=== PATIENT | male | born 1985 | race Caucasian/White ===

== ENCOUNTER 2017-05-18 19:20 | Emergency (ER) | payer MEDICAID ==
[2016-04-11 12:45] VITALS: BMI 19.7
[~2017-05-18 19:20] MED LIST: PHENERGAN25 M1 PO
[2017-05-18 20:42] LABS: BASOPHILS 0.1 % (0-2); EOSINOPHILS 0.1 % (0-7); HEMATOCRIT 43.1 % (42.0-54.0); HEMOGLOBIN 14.5 g/dL (13.5-17.5); IMMATURE GRANULOCYTES 0.2 % (0-5); LYMPHOCYTES 9.5 % (15-50); MCH 32.2 pg (26.0-34.0); MCHC 33.6 g/dL (31.0-37.0); MCV 95.6 fL (80.0-100.0); MEAN PLATELET VOLUME 9.3 fL (7.4-10.4); MONOCYTES 3.4 % (2-11); NEUTROPHILS 86.7 % (40-80); RBC 4.51 10x6/uL (4.20-6.10); WBC 11.1 10x3/uL (4.8-10.8)
[2017-05-18 20:44] LABS: PLATELET COUNT 280 10x3/uL (130-400)
[2017-05-18 20:59] LABS: ALBUMIN 3.7 g/dL (3.4-5.0); ALKALINE PHOSPHATASE 70 U/L (46-116); ALT (SGPT) 24 U/L (10-68); BILIRUBIN - TOTAL 0.37 mg/dL (0.2-1.3); CALC OSMOLALITY 285 mosm/kg (275-300); CALCIUM 8.4 mg/dL (8.5-10.1); CARBON DIOXIDE 22.9 mmol/L (21.0-32.0); CHLORIDE - SERUM 108 mmol/L (98-107); CREATININE - SERUM 0.7 mg/dL (0.6-1.3); GLUCOSE 125 mg/dL (74-106); LIPASE 107 U/L (73-393); POTASSIUM - SERUM 3.8 mmol/L (3.5-5.1); PROTEIN - SERUM 6.8 g/dL (6.4-8.2); SODIUM 144 mmol/L (136-145); UREA NITROGEN 8 mg/dL (7-18); eGFR NON AFRICAN AMERICAN > 90 mL/min (90-120)
[2017-05-18 22:31] LABS: APPEARANCE CLEAR (CLEAR); COLOR YELLOW (YELLOW); GLUCOSE NEGATIVE (NEGATIVE); KETONE MODERATE mg/dL (NEGATIVE); NITRITE NEGATIVE (NEGATIVE); PROTEIN NEGATIVE (NEGATIVE); SPECIFIC GRAVITY 1.015 (1.005-1.020)
[2017-05-18 22:32] LABS: BILIRUBIN NEGATIVE (NEGATIVE); UROBILINOGEN NORMAL (NORMAL)
[2017-05-18 22:33] LABS: RED CELLS - URINE 0-5 /hpf (0-5); WHITE CELLS - URINE OCC /hpf (0-5)
== END 2017-05-19 00:22 | disposition home or self-care (01) ==
LOC: D.ER 19:20
PROVIDERS: Emergency Medicine
DX: R10.9 Unspecified abdominal pain (principal); R11.10 Vomiting, unspecified

== ENCOUNTER 2017-05-21 12:45 | Emergency (ER) | payer SELFPAY ==
[2016-04-11 12:45] VITALS: BMI 19.7
[2017-05-21 13:17] LABS: BASOPHILS 0.1 % (0-2); EOSINOPHILS 0 % (0-7); HEMATOCRIT 46.9 % (42.0-54.0); HEMOGLOBIN 16.1 g/dL (13.5-17.5); IMMATURE GRANULOCYTES 0.2 % (0-5); LYMPHOCYTES 8.5 % (15-50); MCH 32.4 pg (26.0-34.0); MCHC 34.3 g/dL (31.0-37.0); MCV 94.4 fL (80.0-100.0); MEAN PLATELET VOLUME 9.2 fL (7.4-10.4); MONOCYTES 3.4 % (2-11); NEUTROPHILS 87.8 % (40-80); PLATELET COUNT 273 10x3/uL (130-400); RBC 4.97 10x6/uL (4.20-6.10); RDW 12.5 % (11.5-14.5); WBC 9.8 10x3/uL (4.8-10.8)
[2017-05-21 13:46] LABS: ALBUMIN 3.9 g/dL (3.4-5.0); ALKALINE PHOSPHATASE 77 U/L (46-116); ALT (SGPT) 25 U/L (10-68); AMYLASE - SERUM 51 U/L (25-115); BILIRUBIN - TOTAL 0.54 mg/dL (0.2-1.3); CALC OSMOLALITY 280 mosm/kg (275-300); CALCIUM 9.2 mg/dL (8.5-10.1); CARBON DIOXIDE 28.3 mmol/L (21.0-32.0); CHLORIDE - SERUM 100 mmol/L (98-107); CREATININE - SERUM 0.8 mg/dL (0.6-1.3); GLUCOSE 126 mg/dL (74-106); LIPASE 112 U/L (73-393); POTASSIUM - SERUM 3.7 mmol/L (3.5-5.1); PROTEIN - SERUM 7.4 g/dL (6.4-8.2); SODIUM 139 mmol/L (136-145); UREA NITROGEN 16 mg/dL (7-18); eGFR NON AFRICAN AMERICAN > 90 mL/min (90-120)
== END 2017-05-21 15:41 | disposition home or self-care (01) ==
LOC: D.ER 12:45
PROVIDERS: Emergency Medicine
DX: G43.A0 Cyclical vomiting, in migraine, not intractable (principal); E86.0 Dehydration; R10.13 Epigastric pain

== ENCOUNTER 2017-09-29 07:09 | Emergency (ER) | payer SELFPAY ==
[2016-04-11 12:45] VITALS: BMI 19.7
[2017-09-29 08:07] LABS: AMYLASE - SERUM 61 U/L (25-115); LIPASE 118 U/L (73-393)
[2017-09-29 08:14] LABS: ALBUMIN 3.9 g/dL (3.4-5.0); ALKALINE PHOSPHATASE 75 U/L (46-116); ALT (SGPT) 19 U/L (10-68); BILIRUBIN - TOTAL 0.86 mg/dL (0.2-1.3); CALC OSMOLALITY 272 mosm/kg (275-300); CALCIUM 8.9 mg/dL (8.5-10.1); CARBON DIOXIDE 29.3 mmol/L (21.0-32.0); CHLORIDE - SERUM 98 mmol/L (98-107); CREATININE - SERUM 0.8 mg/dL (0.6-1.3); GLUCOSE 118 mg/dL (74-106); POTASSIUM - SERUM 3.8 mmol/L (3.5-5.1); PROTEIN - SERUM 7.2 g/dL (6.4-8.2); SODIUM 136 mmol/L (136-145); UREA NITROGEN 13 mg/dL (7-18); eGFR NON AFRICAN AMERICAN > 90 mL/min (90-120)
[2017-09-29 08:40] LABS: BASOPHILS 0 % (0-2); EOSINOPHILS 0.1 % (0-7); HEMATOCRIT 41.4 % (42.0-54.0); HEMOGLOBIN 14.5 g/dL (13.5-17.5); IMMATURE GRANULOCYTES 0.2 % (0-5); LYMPHOCYTES 17.7 % (15-50); MCH 31.9 pg (26.0-34.0); MCV 91.2 fL (80.0-100.0); MEAN PLATELET VOLUME 9.3 fL (7.4-10.4); MONOCYTES 9.1 % (2-11); NEUTROPHILS 72.9 % (40-80); PLATELET COUNT 293 10x3/uL (130-400); RBC 4.54 10x6/uL (4.20-6.10); RDW 12.7 % (11.5-14.5); WBC 10.1 10x3/uL (4.8-10.8)
== END 2017-09-29 10:09 | disposition home or self-care (01) ==
LOC: D.ER 07:09
PROVIDERS: Emergency Medicine
DX: G43.A0 Cyclical vomiting, in migraine, not intractable (principal); R10.9 Unspecified abdominal pain

== ENCOUNTER 2018-01-22 17:00 | Emergency (ER) | payer SELFPAY ==
[~2018-01-22] VITALS: Ht 182.9 cm; Wt 68.2 kg
[2018-01-22 17:01] VITALS: Ht 182.9 cm; Wt 68.2 kg
[2018-01-22] MEDS ORDERED: ATIVAN1 MG PO (17:05)
[2018-01-22 17:55] VITALS: BP 137/83
[2018-01-22 18:19] LABS: BASOPHILS 0.1 % (0-2); EOSINOPHILS 0.2 % (0-7); HEMATOCRIT 43.8 % (42.0-54.0); HEMOGLOBIN 15.8 g/dL (13.5-17.5); IMMATURE GRANULOCYTES 0.4 % (0-5); LYMPHOCYTES 23.9 % (15-50); MCHC 36.1 g/dL (31.0-37.0); MCV 86.1 fL (80.0-100.0); MONOCYTES 7.5 % (2-11); NEUTROPHILS 67.9 % (40-80); PLATELET COUNT 317 10x3/uL (130-400); RBC 5.09 10x6/uL (4.20-6.10); RDW 12.3 % (11.5-14.5); WBC 8.9 10x3/uL (4.8-10.8)
[2018-01-22 18:20] LABS: ALKALINE PHOSPHATASE 84 U/L (46-116); ALT (SGPT) 29 U/L (10-68); AMYLASE - SERUM 51 U/L (25-115); BILIRUBIN - TOTAL 0.98 mg/dL (0.2-1.3); CALC OSMOLALITY 270 mosm/kg (275-300); CALCIUM 9.4 mg/dL (8.5-10.1); CARBON DIOXIDE 27.7 mmol/L (21.0-32.0); CHLORIDE - SERUM 96 mmol/L (98-107); CREATINE KINASE 49 UL (21-232); GLUCOSE 111 mg/dL (74-106); LIPASE 169 U/L (73-393); MAGNESIUM - SERUM 2.3 mg/dL (1.8-2.4); POTASSIUM - SERUM 3.6 mmol/L (3.5-5.1); PROTEIN - SERUM 7.6 g/dL (6.4-8.2); SODIUM 133 mmol/L (136-145); UREA NITROGEN 25 mg/dL (7-18); eGFR NON AFRICAN AMERICAN > 90 mL/min (90-120)
== END 2018-01-22 19:40 | disposition home or self-care (01) ==
LOC: D.ER 17:00
PROVIDERS: Family Medicine
DX: G40.909 Epilepsy, unspecified, not intractable, without status epilepticus (principal); F17.200 Nicotine dependence, unspecified, uncomplicated

== ENCOUNTER 2018-01-31 15:06 | Emergency (ER) | payer SELFPAY ==
[~2018-01-31] VITALS: Ht 182.9 cm; Wt 65.9 kg
[~2018-01-31 15:06] MED LIST changes: +ATIVAN1 MG PO
[2018-01-31 15:10] VITALS: Ht 182.9 cm; Wt 65.9 kg
[2018-01-31 15:44] LABS: BASOPHILS 0.1 % (0-2); EOSINOPHILS 0 % (0-7); HEMATOCRIT 42.6 % (42.0-54.0); HEMOGLOBIN 14.8 g/dL (13.5-17.5); IMMATURE GRANULOCYTES 0.3 % (0-5); LYMPHOCYTES 9.1 % (15-50); MCH 31.6 pg (26.0-34.0); MCHC 34.7 g/dL (31.0-37.0); MCV 90.8 fL (80.0-100.0); MEAN PLATELET VOLUME 8.9 fL (7.4-10.4); MONOCYTES 2.8 % (2-11); NEUTROPHILS 87.7 % (40-80); PLATELET COUNT 372 10x3/uL (130-400); RBC 4.69 10x6/uL (4.20-6.10); RDW 13.2 % (11.5-14.5); WBC 15.6 10x3/uL (4.8-10.8)
[2018-01-31 15:51] LABS: INR 1.08 (0.85-1.17); PROTIME 13.6 SECONDS (11.6-15.0)
[2018-01-31 15:58] LABS: ALBUMIN 3.9 g/dL (3.4-5.0); ALKALINE PHOSPHATASE 77 U/L (46-116); ALT (SGPT) 18 U/L (10-68); BILIRUBIN - TOTAL 0.75 mg/dL (0.2-1.3); CALC OSMOLALITY 269 mosm/kg (275-300); CALCIUM 9.4 mg/dL (8.5-10.1); CARBON DIOXIDE 23.9 mmol/L (21.0-32.0); CHLORIDE - SERUM 102 mmol/L (98-107); CREATININE - SERUM 0.9 mg/dL (0.6-1.3); GLUCOSE 128 mg/dL (74-106); POTASSIUM - SERUM 4.4 mmol/L (3.5-5.1); PROTEIN - SERUM 7.4 g/dL (6.4-8.2); SODIUM 135 mmol/L (136-145); UREA NITROGEN 7 mg/dL (7-18); eGFR NON AFRICAN AMERICAN > 90 mL/min (90-120)
[2018-01-31 16:26] LABS: AMYLASE - SERUM 57 U/L (25-115); CKMB 1.1 U/L (0.0-3.6); CREATINE KINASE 74 UL (21-232); LIPASE 186 U/L (73-393); THYROID STIMULATING HORMONE 0.88 uIU/mL (0.36-3.74)
[2018-01-31 16:28] LABS: TROPONIN-I < 0.017 ng/mL (0.000-0.060)
[2018-01-31 16:35] LABS: APPEARANCE CLEAR (CLEAR); COLOR DK YELLOW (YELLOW); GLUCOSE NEGATIVE (NEGATIVE); KETONE SMALL mg/dL (NEGATIVE); NITRITE NEGATIVE (NEGATIVE); PROTEIN NEGATIVE (NEGATIVE); SPECIFIC GRAVITY 1.005 (1.005-1.020)
[2018-01-31 16:36] LABS: BILIRUBIN NEGATIVE (NEGATIVE); UROBILINOGEN NORMAL (NORMAL)
[2018-01-31 16:37] LABS: BACTERIA FEW /hpf (NONE SEEN); MUCUS <1+ /lpf (NONE SEEN); WHITE CELLS - URINE 0-5 /hpf (0-5)
[2018-01-31 16:43] LABS: UDS - AMPHET POSITIVE QUAL (NEGATIVE); UDS - BARB NEGATIVE QUAL (NEGATIVE); UDS - BENZO NEGATIVE QUAL (NEGATIVE); UDS - COCAINE NEGATIVE QUAL (NEGATIVE); UDS - OPIATE NEGATIVE QUAL (NEGATIVE); UDS - PCP NEGATIVE QUAL (NEGATIVE); UDS - THC POSITIVE QUAL (NEGATIVE)
[2018-01-31] MEDS ORDERED: VALIUM 2 MG TAB2 MG PO (19:20)
[2018-01-31 20:01] VITALS: BP 144/81
== END 2018-01-31 20:01 | disposition home or self-care (01) ==
LOC: D.ER 15:06
PROVIDERS: Family Medicine
DX: G40.909 Epilepsy, unspecified, not intractable, without status epilepticus (principal); E86.0 Dehydration; Z91.14 Patient's other noncompliance with medication regimen; R10.9 Unspecified abdominal pain; R11.2 Nausea with vomiting, unspecified; F17.200 Nicotine dependence, unspecified, uncomplicated

== ENCOUNTER 2018-02-02 07:28 | Emergency (ER) | payer SELFPAY ==
[~2018-02-02] VITALS: Ht 182.9 cm; Wt 54.5 kg
[~2018-02-02 07:28] MED LIST changes: +VALIUM 2 MG TAB2 MG PO
[2018-02-02 07:30] VITALS: BP 112/79; Ht 182.9 cm; Wt 54.5 kg
== END 2018-02-02 07:50 | disposition left against medical advice (07) ==
LOC: D.ER 07:28
DX: F13.10 Sedative, hypnotic or anxiolytic abuse, uncomplicated (principal); G40.909 Epilepsy, unspecified, not intractable, without status epilepticus; F17.200 Nicotine dependence, unspecified, uncomplicated

== ENCOUNTER 2018-12-21 19:53 | Emergency (ER) | payer SELFPAY ==
[2018-12-21 20:10] VITALS: BMI 20.4
[2018-12-21 20:51] LABS: APPEARANCE CLEAR (CLEAR); COLOR YELLOW (YELLOW)
[2018-12-21 20:52] LABS: BILIRUBIN NEGATIVE (NEGATIVE); GLUCOSE NEGATIVE (NEGATIVE); KETONE NEGATIVE (NEGATIVE); NITRITE NEGATIVE (NEGATIVE); PROTEIN NEGATIVE (NEGATIVE); SPECIFIC GRAVITY 1.015 (1.005-1.020); UROBILINOGEN NORMAL (NORMAL)
[2018-12-21 20:53] LABS: BACTERIA FEW /hpf (NONE SEEN); EPITHELIAL CELLS NSEEN /hpf (0-5); RED CELLS - URINE 0-5 /hpf (0-5); WHITE CELLS - URINE 0-5 /hpf (0-5)
[2018-12-21 20:55] LABS: UDS - AMPHET NEGATIVE QUAL (NEGATIVE); UDS - BARB NEGATIVE QUAL (NEGATIVE); UDS - BENZO POSITIVE QUAL (NEGATIVE); UDS - COCAINE NEGATIVE QUAL (NEGATIVE); UDS - OPIATE NEGATIVE QUAL (NEGATIVE); UDS - PCP NEGATIVE QUAL (NEGATIVE); UDS - THC POSITIVE QUAL (NEGATIVE)
[2018-12-21 21:02] LABS: BASOPHILS 0.4 % (0-2); EOSINOPHILS 2.9 % (0-7); HEMATOCRIT 43.6 % (42.0-54.0); IMMATURE GRANULOCYTES 0.4 % (0-5); LYMPHOCYTES 29.7 % (15-50); MCH 31.8 pg (26.0-34.0); MCHC 34.4 g/dL (31.0-37.0); MCV 92.6 fL (80.0-100.0); MEAN PLATELET VOLUME 8.9 fL (7.4-10.4); NEUTROPHILS 59.6 % (40-80); RBC 4.71 10x6/uL (4.20-6.10); RDW 12.7 % (11.5-14.5); WBC 8.2 10x3/uL (4.8-10.8)
[2018-12-21 21:03] LABS: PLATELET COUNT 279 10x3/uL (130-400)
--- NOTE | 2018-12-21 21:20 | NUR ---
The patient cut his wrists on his bilateral wrists, he is depressed and has a lot of anxiety. Due to the suicide assessment he rates high and requiers a 1:1 observation.
[2018-12-21 21:30] LABS: ALBUMIN 3.8 g/dL (3.4-5.0); ALKALINE PHOSPHATASE 70 U/L (46-116); ALT (SGPT) 23 U/L (10-68); BILIRUBIN - TOTAL 0.59 mg/dL (0.2-1.3); CALC OSMOLALITY 282 mosm/kg (275-300); CALCIUM 8.9 mg/dL (8.5-10.1); CARBON DIOXIDE 27.1 mmol/L (21.0-32.0); CHLORIDE - SERUM 105 mmol/L (98-107); CREATININE - SERUM 1.1 mg/dL (0.6-1.3); MAGNESIUM - SERUM 2.3 mg/dL (1.8-2.4); POTASSIUM - SERUM 4.2 mmol/L (3.5-5.1); SODIUM 141 mmol/L (136-145); UREA NITROGEN 20 mg/dL (7-18); eGFR NON AFRICAN AMERICAN 82 mL/min (90-120)
[2018-12-21 21:39] LABS: GLUCOSE 76 mg/dL (74-106)
[2018-12-22 01:00] VITALS: BP 125/84
== END 2018-12-22 10:29 ==
LOC: D.ER 19:53
PROVIDERS: Emergency Medicine
DX: S61.512A Laceration without foreign body of left wrist, initial encounter (principal); X78.1XXA Intentional self-harm by knife, initial encounter; Y93.89 Activity, other specified; Y92.89 Other specified places as the place of occurrence of the external cause

== ENCOUNTER 2019-02-07 13:12 | Emergency (ER) | payer MEDICAID ==
[~2019-02-07] VITALS: Ht 182.9 cm; Wt 79.5 kg
[2019-02-07 13:28] VITALS: Ht 182.9 cm; Wt 79.5 kg
[2019-02-07] MEDS ORDERED: REMERON30 MG PO (13:32)
[2019-02-07] MEDS ORDERED: PAXIL40 MG PO (13:32)
[2019-02-07 14:17] LABS: BASOPHILS 0.1 % (0-2); EOSINOPHILS 0.3 % (0-7); HEMATOCRIT 50.9 % (42.0-54.0); HEMOGLOBIN 18.7 g/dL (13.5-17.5); IMMATURE GRANULOCYTES 0.4 % (0-5); LYMPHOCYTES 24.1 % (15-50); MCH 33.1 pg (26.0-34.0); MCHC 36.7 g/dL (31.0-37.0); MCV 90.1 fL (80.0-100.0); MEAN PLATELET VOLUME 9.4 fL (7.4-10.4); MONOCYTES 13.9 % (2-11); NEUTROPHILS 61.2 % (40-80); PLATELET COUNT 303 10x3/uL (130-400); RBC 5.65 10x6/uL (4.20-6.10); RDW 13.4 % (11.5-14.5); WBC 12.8 10x3/uL (4.8-10.8)
[2019-02-07 14:38] LABS: ALBUMIN 4.2 g/dL (3.4-5.0); ANION GAP 13.4 mmol/L (8-16); BILIRUBIN - TOTAL 1.23 mg/dL (0.2-1.3); CALCIUM 9.2 mg/dL (8.5-10.1); CARBON DIOXIDE 30.3 mmol/L (21.0-32.0); CREATININE - SERUM 1.2 mg/dL (0.6-1.3); PROTEIN - SERUM 8.4 g/dL (6.4-8.2)
[2019-02-07 14:41] LABS: POTASSIUM - SERUM 2.7 mmol/L (3.5-5.1)
[2019-02-07] MEDS ORDERED: FLAGYL500 MG PO (20:14)
[2019-02-07] MEDS ORDERED: ZOFRAN4 MG PO (20:14)
[2019-02-07] MEDS ORDERED: K-TAB10 MEQ PO (20:15)
[2019-02-07 21:20] VITALS: BP 118/80
== END 2019-02-07 21:20 | disposition home or self-care (01) ==
LOC: D.ER 13:12
PROVIDERS: Emergency Medicine
DX: K52.9 Noninfective gastroenteritis and colitis, unspecified (principal); R10.9 Unspecified abdominal pain; E87.6 Hypokalemia

== ENCOUNTER 2019-02-15 11:10 | Emergency (ER) | payer SELFPAY ==
[~2019-02-15] VITALS: Ht 182.9 cm; Wt 79.5 kg
[~2019-02-15 11:10] MED LIST changes: +FLAGYL500 MG PO; +K-TAB10 MEQ PO; +PAXIL40 MG PO; +REMERON30 MG PO; +ZOFRAN4 MG PO
[2019-02-15 11:16] VITALS: Ht 182.9 cm; Wt 79.5 kg
[2019-02-15 12:02] LABS: ALBUMIN 3.2 g/dL (3.4-5.0); ALKALINE PHOSPHATASE 65 U/L (46-116); ALT (SGPT) 24 U/L (10-68); BILIRUBIN - TOTAL 0.27 mg/dL (0.2-1.3); CALC OSMOLALITY 278 mosm/kg (275-300); CALCIUM 8.8 mg/dL (8.5-10.1); CARBON DIOXIDE 29.5 mmol/L (21.0-32.0); CHLORIDE - SERUM 107 mmol/L (98-107); CREATININE - SERUM 0.9 mg/dL (0.6-1.3); GLUCOSE 84 mg/dL (74-106); POTASSIUM - SERUM 3.9 mmol/L (3.5-5.1); PROTEIN - SERUM 6.2 g/dL (6.4-8.2); SODIUM 141 mmol/L (136-145); UREA NITROGEN 9 mg/dL (7-18); eGFR NON AFRICAN AMERICAN > 90 mL/min (90-120)
[2019-02-15] MEDS ORDERED: PHENERGAN25 MG RC (12:02)
[2019-02-15 12:04] LABS: AMYLASE - SERUM 60 U/L (25-115); LIPASE 207 U/L (73-393); TROPONIN-I < 0.017 ng/mL (0.000-0.060)
[2019-02-15 12:17] LABS: BASOPHILS 0.4 % (0-2); EOSINOPHILS 2.3 % (0-7); HEMATOCRIT 40.6 % (42.0-54.0); HEMOGLOBIN 14.1 g/dL (13.5-17.5); IMMATURE GRANULOCYTES 0.4 % (0-5); LYMPHOCYTES 41.6 % (15-50); MCH 32.4 pg (26.0-34.0); MCHC 34.7 g/dL (31.0-37.0); MCV 93.3 fL (80.0-100.0); MEAN PLATELET VOLUME 9.2 fL (7.4-10.4); NEUTROPHILS 46.3 % (40-80); PLATELET COUNT 376 10x3/uL (130-400); RBC 4.35 10x6/uL (4.20-6.10); RDW 13.5 % (11.5-14.5)
--- NOTE | 2019-02-15 14:46 | NUR ---
DR. ROBLES NOTIFIED AND SITTER IN LINE OF SIGHT ORDERED. SITTER AT BEDSIDE. NOTIFIED CHARGE NURSE AND ATTENDING IN REGARDS TO ASSESSMENT FINDINGS. RESOURCES GIVEN TO PT AND SAFETY PLAN INTIATED.
[2019-02-15 17:13] LABS: APPEARANCE CLEAR (CLEAR); COLOR STRAW (YELLOW); SPECIFIC GRAVITY 1.005 (1.005-1.020)
[2019-02-15 17:14] LABS: BILIRUBIN NEGATIVE (NEGATIVE); GLUCOSE NEGATIVE (NEGATIVE); KETONE NEGATIVE (NEGATIVE); NITRITE NEGATIVE (NEGATIVE); PROTEIN NEGATIVE (NEGATIVE); UROBILINOGEN NORMAL (NORMAL)
[2019-02-15 17:15] LABS: BACTERIA FEW /hpf (NONE SEEN); RED CELLS - URINE 0-5 /hpf (0-5); WHITE CELLS - URINE OCC /hpf (0-5)
[2019-02-15 17:21] LABS: UDS - AMPHET NEGATIVE QUAL (NEGATIVE); UDS - BARB NEGATIVE QUAL (NEGATIVE); UDS - BENZO NEGATIVE QUAL (NEGATIVE); UDS - COCAINE NEGATIVE QUAL (NEGATIVE); UDS - OPIATE NEGATIVE QUAL (NEGATIVE); UDS - PCP NEGATIVE QUAL (NEGATIVE); UDS - THC POSITIVE QUAL (NEGATIVE)
[2019-02-15 20:04] VITALS: BP 116/76
== END 2019-02-15 20:04 | disposition home or self-care (01) ==
LOC: D.ER 11:10
PROVIDERS: Emergency Medicine
DX: R11.10 Vomiting, unspecified (principal); F17.210 Nicotine dependence, cigarettes, uncomplicated

== ENCOUNTER 2019-06-03 09:11 | Emergency (ER) | payer MEDICAID ==
[~2019-06-03] VITALS: Ht 182.9 cm; Wt 72.7 kg
[~2019-06-03 09:11] MED LIST changes: +PHENERGAN25 MG RC
[2019-06-03 09:13] VITALS: Ht 182.9 cm; Wt 72.7 kg
[2019-06-03 09:37] LABS: BASOPHILS 0.1 % (0-2); EOSINOPHILS 0 % (0-7); HEMATOCRIT 49.2 % (42.0-54.0); IMMATURE GRANULOCYTES 0.3 % (0-5); LYMPHOCYTES 7.8 % (15-50); MCH 32.1 pg (26.0-34.0); MCHC 34.6 g/dL (31.0-37.0); MEAN PLATELET VOLUME 9.7 fL (7.4-10.4); MONOCYTES 5.5 % (2-11); NEUTROPHILS 86.3 % (40-80); PLATELET COUNT 347 10x3/uL (130-400); RBC 5.29 10x6/uL (4.20-6.10); RDW 13.1 % (11.5-14.5); WBC 15.5 10x3/uL (4.8-10.8)
[2019-06-03 09:53] LABS: APPEARANCE CLEAR (CLEAR); BILIRUBIN NEGATIVE (NEGATIVE); COLOR YELLOW (YELLOW); GLUCOSE NEGATIVE (NEGATIVE); KETONE NEGATIVE (NEGATIVE); NITRITE NEGATIVE (NEGATIVE); PROTEIN TRACE mg/dL (NEGATIVE); SPECIFIC GRAVITY 1.005 (1.005-1.020); UROBILINOGEN NORMAL (NORMAL)
[2019-06-03 09:55] LABS: BACTERIA FEW /hpf (NEGATIVE); EPITHELIAL CELLS 0-5 /hpf (0-5); WHITE CELLS - URINE 0-5 /hpf (NEGATIVE)
[2019-06-03 10:30] LABS: CALC OSMOLALITY 271 mosm/kg (275-300); CALCIUM 9.9 mg/dL (8.5-10.1); CHLORIDE - SERUM 98 mmol/L (98-107); CREATININE - SERUM 0.9 mg/dL (0.6-1.3); POTASSIUM - SERUM 4.1 mmol/L (3.5-5.1); SODIUM 134 mmol/L (136-145); UREA NITROGEN 19 mg/dL (7-18); eGFR NON AFRICAN AMERICAN > 90 mL/min (90-120)
[2019-06-03 10:32] LABS: GLUCOSE 127 mg/dL (74-106)
[2019-06-03 10:33] LABS: ALBUMIN 4.2 g/dL (3.4-5.0); ALKALINE PHOSPHATASE 85 U/L (46-116); ALT (SGPT) 22 U/L (10-68); BILIRUBIN - TOTAL 0.83 mg/dL (0.2-1.3); LIPASE 106 U/L (73-393); PROTEIN - SERUM 8.2 g/dL (6.4-8.2)
[2019-06-03] MEDS ORDERED: ZOFRAN ODT4 MG/UDTAB PO (12:12)
[2019-06-03 12:47] VITALS: BP 128/72
== END 2019-06-03 12:48 | disposition home or self-care (01) ==
LOC: D.ER 09:11
PROVIDERS: Family Medicine
DX: A08.4 Viral intestinal infection, unspecified (principal); K50.90 Crohn's disease, unspecified, without complications

== ENCOUNTER 2019-12-17 16:35 | Emergency (ER) | payer OTHER ==
[~2019-12-17] VITALS: Ht 182.9 cm; Wt 68.2 kg
[~2019-12-17 16:35] MED LIST changes: +ZOFRAN ODT4 MG/UDTAB PO
[2019-12-17 16:41] VITALS: BP 130/68; Ht 182.9 cm; Wt 68.2 kg
[2019-12-18] MEDS ORDERED: ZOFRAN ODT4 MG/UDTAB PO (19:44)
[2019-12-18] MEDS ORDERED: BENTYL 20 MG TA20 MG PO (19:44)
== END 2019-12-17 17:40 | disposition left against medical advice (07) ==
LOC: D.ER 16:35
DX: E86.0 Dehydration (principal); R11.10 Vomiting, unspecified

== ENCOUNTER 2019-12-18 17:53 | Inpatient (IN) | payer OTHER ==
[~2019-12-18] VITALS: Ht 182.9 cm; Wt 70.3 kg
[2019-12-18 18:28] LABS: BASOPHILS 0.1 % (0-2); EOSINOPHILS 0.1 % (0-7); HEMATOCRIT 45.1 % (42.0-54.0); HEMOGLOBIN 15.5 g/dL (13.5-17.5); IMMATURE GRANULOCYTES 0.5 % (0-5); LYMPHOCYTES 16.7 % (15-50); MCH 31.3 pg (26.0-34.0); MCHC 34.4 g/dL (31.0-37.0); MCV 90.9 fL (80.0-100.0); MEAN PLATELET VOLUME 9.2 fL (7.4-10.4); MONOCYTES 8.7 % (2-11); NEUTROPHILS 73.9 % (40-80); PLATELET COUNT 357 10x3/uL (130-400); RBC 4.96 10x6/uL (4.20-6.10); RDW 12.4 % (11.5-14.5)
[2019-12-18 18:40] LABS: CALC OSMOLALITY 269 mosm/kg (275-300); CALCIUM 8.7 mg/dL (8.5-10.1); CHLORIDE - SERUM 97 mmol/L (98-107); CREATININE - SERUM 1.1 mg/dL (0.6-1.3); GLUCOSE 93 mg/dL (74-106); POTASSIUM - SERUM 3.8 mmol/L (3.5-5.1); SODIUM 134 mmol/L (136-145); UREA NITROGEN 18 mg/dL (7-18); eGFR NON AFRICAN AMERICAN 82 mL/min (90-120)
[2019-12-18 18:49] LABS: BILIRUBIN NEGATIVE (NEGATIVE); GLUCOSE NEGATIVE (NEGATIVE); KETONE NEGATIVE (NEGATIVE); NITRITE NEGATIVE (NEGATIVE); UROBILINOGEN NORMAL (NORMAL)
[2019-12-18 18:49] LABS: ALBUMIN 3.8 g/dL (3.4-5.0); ALKALINE PHOSPHATASE 81 U/L (30-120); ALT (SGPT) 35 U/L (10-68); AMYLASE - SERUM 238 U/L (25-115); BILIRUBIN - TOTAL 0.68 mg/dL (0.2-1.3); LIPASE 1479 U/L (73-393); PROTEIN - SERUM 7.1 g/dL (6.4-8.2)
[2019-12-18 18:50] LABS: WHITE CELLS - URINE OCC /hpf (NEGATIVE)
[2019-12-18 18:51] VITALS: BP 128/89
[2019-12-18 18:51] LABS: TROPONIN-I < 0.017 ng/mL (0.000-0.060)
--- NOTE | 2019-12-18 18:58 | NUR ---
PT TO CT.
--- NOTE | 2019-12-18 19:10 | NUR ---
PT BACK FROM CT
[2019-12-18] MEDS ORDERED: BENTYL 20 MG TA20 MG PO (19:44)
[2019-12-18] MEDS ORDERED: ZOFRAN ODT4 MG/UDTAB PO (19:44)
[2019-12-18 19:51] LABS: CHOL - HDL RATIO 3.4 ratio (2.3-4.9); LDL-HDL RATIO 2.1 ratio (1.5-3.5)
[2019-12-18 21:55] VITALS: BP 96/63
--- NOTE | 2019-12-18 22:30 | NUR ---
RECEIVED TO ROOM, ACCOMPANIED BY ER STAFF. A&O X 4, AMBULATES AD JG. NS @ 125 TO RIGHT AC. DENIES PAIN/NAUSEA AT THIS TIME. VERBALIZED UNDERSTANDING OF NPO STATUS. NO FURTHER NEEDS AT THIS TIME, CL IN REACH, CONTINUE PLAN OF CARE.
[2019-12-19] VITALS (7 sets, daily range): BP systolic 102–135; BP diastolic 59–84; Ht 182.9 cm; Wt 70.3 kg
[2019-12-19 04:51] LABS: BASOPHILS 0.1 % (0-2); EOSINOPHILS 0.8 % (0-7); HEMATOCRIT 41.2 % (42.0-54.0); HEMOGLOBIN 13.9 g/dL (13.5-17.5); IMMATURE GRANULOCYTES 0.6 % (0-5); LYMPHOCYTES 32.3 % (15-50); MCHC 33.7 g/dL (31.0-37.0); MCV 91.8 fL (80.0-100.0); MONOCYTES 10.8 % (2-11); NEUTROPHILS 55.4 % (40-80); PLATELET COUNT 314 10x3/uL (130-400); RBC 4.49 10x6/uL (4.20-6.10); RDW 12.5 % (11.5-14.5)
[2019-12-19 05:11] LABS: WBC 8.6 10x3/uL (4.8-10.8)
[2019-12-19 05:23] LABS: ALKALINE PHOSPHATASE 67 U/L (30-120); ALT (SGPT) 28 U/L (10-68); BILIRUBIN - TOTAL 0.57 mg/dL (0.2-1.3); CALC OSMOLALITY 277 mosm/kg (275-300); CALCIUM 8.1 mg/dL (8.5-10.1); CARBON DIOXIDE 27.6 mmol/L (21.0-32.0); CHLORIDE - SERUM 105 mmol/L (98-107); CREATININE - SERUM 0.9 mg/dL (0.6-1.3); GLUCOSE 92 mg/dL (74-106); POTASSIUM - SERUM 3.7 mmol/L (3.5-5.1); PROTEIN - SERUM 5.6 g/dL (6.4-8.2); SODIUM 138 mmol/L (136-145); UREA NITROGEN 18 mg/dL (7-18); eGFR NON AFRICAN AMERICAN > 90 mL/min (90-120)
[2019-12-19 05:24] LABS: ALBUMIN 2.7 g/dL (3.4-5.0)
--- NOTE | 2019-12-19 07:00 | NUR ---
SHIFT REPORT RECEIVED. TAPED IV DOWN MORE. NO NEEDS AT THIS TIME. PATIENT IS A/O. CL IN REACH. [facility]
--- NOTE | 2019-12-19 13:21 | NUR ---
PATIENT REQUESTED SOMETHING TO HELP WITH DRY MOUTH. GAVE HIM TOOTHBRUSH, BOTH TYPES OF SWABS, MOUTHWASH AND TOOTHPASTE. ALSO GAVE SOME ALCOHOL WIPES SINCE PATIENT STATED NAUSEA WAS GROWING A LITTLE BIT. GAVE A EMESIS BAG JUST IN CASE. DENIES ANY FURTHER NEEDS CL IN REACH. TM
--- NOTE | 2019-12-19 16:25 | NUR ---
PATIENT STATED HE WAS FEELING ANXIOUS. WANTING TO KNOW WHAT WE COULD DO SO HE COULD BE DISCHARGED AND "STARVING TO " I REPLIED HE WAS ABLE TO GO WALK IN THE HALLS AND I WOULD CALL Leonor VILLANUEVA APN TO SEE IF PT COULD HAVE SOME ICE CHIPS. Leonor VILLANUEVA APN STATED HE JUST PUT IN CLEAR LIQUID DIET ORDERS IN ON PATIENT. THAT HE WOULDN'T BE ABLE TO DISCHARGE BUT COULD LEAVE AMA. PT WAS INFORMED AND REQUESTED JELLO, POPSICLE, AND ICE WATER. I GAVE ALL THE ABOVE AND A REMY LEMON DEERING JUST IN CASE OF NAUSEA. ADVISED HIM TO TAKE IT SLOWLY WITH THE CLD. CL IN REACH. NO FURTHER NEEDS AT THIS TIME. [facility]CT[facility]
--- NOTE | 2019-12-19 19:30 | NUR ---
PT SITTING UP IN BED WITHOUT DISTRESS, AOX4. IV RIGHT AC INFUSING NS @ 75. DENIES NEEDS AT THIS TIME. CL IN REACH, WILL CTM
--- NOTE | 2019-12-19 22:45 | NUR ---
PT STATES PAIN IN ABDOMEN 02/10 AND THAT HE IS NAUSEOUS, GAVE MORPHINE AND ZOFRAN
[2019-12-20 04:00] VITALS: BP 101/60
[2019-12-20 06:34] LABS: BASOPHILS 0.3 % (0-2); HEMATOCRIT 42.3 % (42.0-54.0); HEMOGLOBIN 13.9 g/dL (13.5-17.5); IMMATURE GRANULOCYTES 0.9 % (0-5); LYMPHOCYTES 26.8 % (15-50); MCH 30.7 pg (26.0-34.0); MCHC 32.9 g/dL (31.0-37.0); MCV 93.4 fL (80.0-100.0); MEAN PLATELET VOLUME 9.3 fL (7.4-10.4); MONOCYTES 10.4 % (2-11); NEUTROPHILS 59.6 % (40-80); PLATELET COUNT 313 10x3/uL (130-400); RBC 4.53 10x6/uL (4.20-6.10); RDW 12.9 % (11.5-14.5); WBC 8.7 10x3/uL (4.8-10.8)
[2019-12-20 06:47] LABS: APTT 29.3 SECONDS (22.8-39.4); INR 1.04 (0.85-1.17); PROTIME 13.5 SECONDS (11.6-15.0)
[2019-12-20 07:09] LABS: AMYLASE - SERUM 218 U/L (25-115); CALC OSMOLALITY 279 mosm/kg (275-300); CALCIUM 7.5 mg/dL (8.5-10.1); CARBON DIOXIDE 25.5 mmol/L (21.0-32.0); CHLORIDE - SERUM 107 mmol/L (98-107); GLUCOSE 91 mg/dL (74-106); MAGNESIUM - SERUM 2.1 mg/dL (1.8-2.4); PHOSPHOROUS 4.4 mg/dL (2.5-4.9); POTASSIUM - SERUM 3.9 mmol/L (3.5-5.1); SODIUM 139 mmol/L (136-145); UREA NITROGEN 19 mg/dL (7-18); eGFR NON AFRICAN AMERICAN > 90 mL/min (90-120)
[2019-12-20 07:10] LABS: LIPASE 1765 U/L (73-393)
--- NOTE | 2019-12-20 08:00 | NUR ---
ASSESSMENT PER FLOW SHEET. PATIENT IS WITHOUT DISTRESS. HE HOPES TO GO HOME SOON. HE IS ANGRY BECAUSE OF HOSPITAL STAY. MONITOR FOR NEEDS.
[2019-12-20 09:32] VITALS: BP 118/67
[2019-12-20 13:17] VITALS: BP 99/69
[2019-12-20 17:07] VITALS: BP 107/67
[2019-12-20 20:00] VITALS: BP 106/56
--- NOTE | 2019-12-20 20:00 | NUR ---
PT SITTING UP IN BED WITHOUT DISTRESS, AOX4. IV RIGHT AC INFUSING NS @ 75. DENIES NEEDS AT THIS TIME. CL IN REACH, WILL CTM
[2019-12-21] VITALS: BP 100/60
[2019-12-21 04:00] VITALS: BP 121/56
[2019-12-21 06:08] LABS: BASOPHILS 0.5 % (0-2); EOSINOPHILS 3.7 % (0-7); HEMATOCRIT 38.9 % (42.0-54.0); HEMOGLOBIN 12.6 g/dL (13.5-17.5); IMMATURE GRANULOCYTES 0.5 % (0-5); LYMPHOCYTES 39.8 % (15-50); MCH 30.4 pg (26.0-34.0); MCHC 32.4 g/dL (31.0-37.0); MONOCYTES 10.1 % (2-11); NEUTROPHILS 45.4 % (40-80); PLATELET COUNT 275 10x3/uL (130-400); RBC 4.14 10x6/uL (4.20-6.10); RDW 12.9 % (11.5-14.5)
[2019-12-21 06:21] LABS: WBC 5.7 10x3/uL (4.8-10.8)
[2019-12-21 06:27] LABS: CALCIUM 7.6 mg/dL (8.5-10.1); CARBON DIOXIDE 28.9 mmol/L (21.0-32.0); CREATININE - SERUM 1.2 mg/dL (0.6-1.3); PHOSPHOROUS 3.7 mg/dL (2.5-4.9); POTASSIUM - SERUM 3.9 mmol/L (3.5-5.1)
--- NOTE | 2019-12-21 09:00 | NUR ---
ALERT AND ORIENTEDX4 SLIGHT ABDOMINL TENDERNESS TO LUQ ANTERIOR WITH BOWEL SOUNDS HYPERACTIVE. MORPHINE AND ZOFRAN GIVEN PRN FOR PAIN 10/10 AND NAUSEA. REFUSES SCD'S. IVF INFUSING AT PRESCRIBED RATE WITH NO S/S OF INFECTION/INFILTRATION. UP ADLIB AND SITTING ON SOB AT THIS TIME. LUNGS CTA WITH NO PERIPHERAL EDEMA
[2019-12-21] MEDS ORDERED: ZOFRAN4 MG PO (09:53)
[2019-12-21] MEDS ORDERED: HYDROCODON-ACE1 EAC7 PO (10:25)
[2019-12-21 10:29] VITALS: BP 121/80
--- NOTE | 2019-12-21 12:20 | NUR ---
IV DISCONTINUED AND VERBALIZED UNDERSTANDING OF DISCHARGE INSTRUCTIONS. STABLE AT TIME OF DISCHARGE.
[2019-12-22 07:13] LABS: HEPATITIS C ANTIBODY 0.3 S/CO RAT (0.0-0.9)
== END 2019-12-21 12:20 | disposition home or self-care (01) | DRG 439 ==
LOC: D.ER 17:53 → D.MS 20:11
PROVIDERS: Family Medicine; ADMIT Family Medicine; ATTEND Family Medicine
DX: K85.90 Acute pancreatitis without necrosis or infection, unspecified (principal); E87.1 Hypo-osmolality and hyponatremia; F17.200 Nicotine dependence, unspecified, uncomplicated; F12.10 Cannabis abuse, uncomplicated

== ENCOUNTER 2019-12-26 11:15 | Observation (INO) | payer OTHER ==
[~2019-12-26] VITALS: Ht 182.9 cm; Wt 69.9 kg
[~2019-12-26 11:15] MED LIST changes: +BENTYL 20 MG TA20 MG PO; +HYDROCODON-ACE1 EAC7 PO
--- NOTE | 2019-12-26 11:30 | NUR ---
URINE SPEC COLLECTED. LABLED AT BS AND SENT TO LAB
[2019-12-26 11:46] LABS: BASOPHILS 0.2 % (0-2); EOSINOPHILS 3.3 % (0-7); HEMATOCRIT 44.5 % (42.0-54.0); HEMOGLOBIN 14.8 g/dL (13.5-17.5); IMMATURE GRANULOCYTES 2.1 % (0-5); LYMPHOCYTES 26.9 % (15-50); MCH 31.6 pg (26.0-34.0); MCHC 33.3 g/dL (31.0-37.0); MCV 95.1 fL (80.0-100.0); MEAN PLATELET VOLUME 8.9 fL (7.4-10.4); NEUTROPHILS 57.5 % (40-80); PLATELET COUNT 378 10x3/uL (130-400); RBC 4.68 10x6/uL (4.20-6.10); RDW 13.9 % (11.5-14.5); WBC 9.4 10x3/uL (4.8-10.8)
[2019-12-26 11:52] LABS: CALC OSMOLALITY 276 mosm/kg (275-300); CALCIUM 8.8 mg/dL (8.5-10.1); CARBON DIOXIDE 30.4 mmol/L (21.0-32.0); CHLORIDE - SERUM 105 mmol/L (98-107); CREATININE - SERUM 0.9 mg/dL (0.6-1.3); GLUCOSE 96 mg/dL (74-106); POTASSIUM - SERUM 4.7 mmol/L (3.5-5.1); SODIUM 138 mmol/L (136-145); UREA NITROGEN 15 mg/dL (7-18); eGFR NON AFRICAN AMERICAN > 90 mL/min (90-120)
[2019-12-26 11:55] LABS: BACTERIA NONE SEEN /hpf (NEGATIVE); BILIRUBIN NEGATIVE (NEGATIVE); EPITHELIAL CELLS RARE /hpf (0-5); GLUCOSE NEGATIVE (NEGATIVE); KETONE NEGATIVE (NEGATIVE); NITRITE NEGATIVE (NEGATIVE); RED CELLS - URINE 0-5 /hpf (0-5); SPECIFIC GRAVITY 1.015 (1.005-1.020); UROBILINOGEN NORMAL (NORMAL); WHITE CELLS - URINE RARE /hpf (NEGATIVE)
[2019-12-26 12:00] LABS: ALBUMIN 3.8 g/dL (3.4-5.0); ALKALINE PHOSPHATASE 74 U/L (30-120); ALT (SGPT) 48 U/L (10-68); AMYLASE - SERUM 109 U/L (25-115); BILIRUBIN - TOTAL 0.26 mg/dL (0.2-1.3); LIPASE 571 U/L (73-393)
[2019-12-26 12:56] VITALS: BP 135/93
[2019-12-26 14:16] VITALS: BP 108/69
[2019-12-26 17:58] VITALS: BP 109/50; BMI 21.0
[2019-12-26 20:00] VITALS: BP 96/60
--- NOTE | 2019-12-26 22:15 | NUR ---
1944) REC'D CHGE OF SHIFT WALKING ROUNDS EYES CLOSED RESP. DEEP AND EVEN.WILL CONTINUE TO MONITOR FOR ANY CHGES. AND FOLLOW CURRENT PLAN OF CARE.2099) CONTINUES TO SLEEP RESP DEEP AND EVEN.2214) AWAKE STANDING IN DOORWAY YELLING I WANT MY GOT KOBE NURSE IN HERE RIGHT NOW I'VE BEEN TRYING TO GET SOMETHING FOR THIS PAIN FOR THREE HOURS.INSTRUCTED YOU'VE BEEN ASLEEP SINCE I'VE BEEN HERE.BECAME VERY ANGRY STATES YOU'RE A [employer] LIAR.EXPLAINED I'M HERE TO HELP YOU WILL BE MORE THAN HAPPY TO GET YOU PAIN MED AND ANYTHING ELSE YOU NEED BUT YOU WILL RESPECT ME.VOICES UNDERSTANDING STATES I'LL PULL THIS IV OUT AND LEAVE INFORMED YES YOU CAN DO THAT BUT THE IV IS YOUR ROUTE FOR PAIN MEDS. STATES SOON DR VIDES I'M OUT OF HERE
--- NOTE | 2019-12-26 23:50 | NUR ---
PATIENT IN BED ASLEEP AT THIS TIME WITH NO S/S OF DISTRESS. HEAD ON PILLOW MOUTH OPEN EYES CLOSED RESPRATIONS EVEN AND UNLABORED SNORING.
[2019-12-27 04:00] VITALS: BP 97/44
[2019-12-27 07:02] LABS: BASOPHILS 0.2 % (0-2); EOSINOPHILS 3.4 % (0-7); HEMATOCRIT 40.6 % (42.0-54.0); HEMOGLOBIN 12.9 g/dL (13.5-17.5); IMMATURE GRANULOCYTES 0.9 % (0-5); LYMPHOCYTES 34.8 % (15-50); MCH 30.6 pg (26.0-34.0); MCHC 31.8 g/dL (31.0-37.0); MCV 96.2 fL (80.0-100.0); MEAN PLATELET VOLUME 9.1 fL (7.4-10.4); MONOCYTES 7.1 % (2-11); NEUTROPHILS 53.6 % (40-80); PLATELET COUNT 308 10x3/uL (130-400); RBC 4.22 10x6/uL (4.20-6.10); RDW 14.1 % (11.5-14.5); WBC 8.4 10x3/uL (4.8-10.8)
[2019-12-27 07:10] LABS: ALBUMIN 2.9 g/dL (3.4-5.0); ALKALINE PHOSPHATASE 57 U/L (30-120); ALT (SGPT) 50 U/L (10-68); BILIRUBIN - TOTAL 0.48 mg/dL (0.2-1.3); CALC OSMOLALITY 277 mosm/kg (275-300); CALCIUM 7.8 mg/dL (8.5-10.1); CARBON DIOXIDE 29.7 mmol/L (21.0-32.0); CHLORIDE - SERUM 105 mmol/L (98-107); CREATININE - SERUM 0.8 mg/dL (0.6-1.3); GLUCOSE 81 mg/dL (74-106); PHOSPHOROUS 4.1 mg/dL (2.5-4.9); PROTEIN - SERUM 5.4 g/dL (6.4-8.2); SODIUM 139 mmol/L (136-145); UREA NITROGEN 14 mg/dL (7-18); eGFR NON AFRICAN AMERICAN > 90 mL/min (90-120)
[2019-12-27 07:13] LABS: AMYLASE - SERUM 63 U/L (25-115); LIPASE 124 U/L (73-393); POTASSIUM - SERUM 3.9 mmol/L (3.5-5.1)
--- NOTE | 2019-12-27 07:31 | NUR ---
I have reviewed this patient and I concur with the Shift Assessment completed by the Licensed Practical Nurse today this shift.
--- NOTE | 2019-12-27 07:37 | NUR ---
I have reviewed this patient and I concur with the Shift Assessment completed by the Licensed Practical Nurse today this shift.
[2019-12-27] MEDS ORDERED: PROTONIX40 MG PO (12:37)
[2019-12-27 12:59] VITALS: Ht 182.9 cm; Wt 69.9 kg
--- NOTE | 2019-12-27 14:20 | NUR ---
PATIENT TOLERATED REGULAR DIET WITH NO PROBLEMS.
[2019-12-27 15:14] LABS: UDS - AMPHET NEGATIVE QUAL (NEGATIVE); UDS - BARB NEGATIVE QUAL (NEGATIVE); UDS - BENZO NEGATIVE QUAL (NEGATIVE); UDS - COCAINE NEGATIVE QUAL (NEGATIVE); UDS - OPIATE NEGATIVE QUAL (NEGATIVE); UDS - PCP NEGATIVE QUAL (NEGATIVE); UDS - THC POSITIVE QUAL (NEGATIVE)
--- NOTE | 2019-12-27 18:29 | NUR ---
PATIENT RECIEVED DC INSTRUCTIONS. VERBALIZED UNDERSTANDING. NO QUESTIONS AT THIS TIME. EXPLAINED TO FLIGHT ATTENDANT MEDS FROM PHARMACY. STATED HE ALREADY HAD THEM AT HOME. IV OUT. STATED IT FELL OUT. AMBULATED WITH RN TO ER TO PRIVATE VEHICLE WITH PERSONAL BELONGINGS AT THIS TIME.
[2019-12-28] MEDS ORDERED: ZOFRAN ODT4 MG/UDTAB PO (17:42)
== END 2019-12-27 18:31 | disposition home or self-care (01) ==
LOC: D.ER 11:15 → OBSVTIME 14:12 → D.MS 14:12
PROVIDERS: Family Medicine; ADMIT Family Medicine; ATTEND Family Medicine
DX: K85.90 Acute pancreatitis without necrosis or infection, unspecified (principal); E86.0 Dehydration; D64.9 Anemia, unspecified

== ENCOUNTER 2019-12-28 15:58 | Emergency (ER) | payer OTHER ==
[~2019-12-28] VITALS: Ht 182.9 cm; Wt 70.5 kg
[~2019-12-28 15:58] MED LIST changes: +PROTONIX40 MG PO
[2019-12-28 16:33] VITALS: Ht 182.9 cm; Wt 70.5 kg
[2019-12-28 17:13] LABS: BASOPHILS 0.2 % (0-2); EOSINOPHILS 2.9 % (0-7); HEMATOCRIT 43.1 % (42.0-54.0); IMMATURE GRANULOCYTES 0.7 % (0-5); LYMPHOCYTES 17.8 % (15-50); MCH 31.1 pg (26.0-34.0); MCHC 32.5 g/dL (31.0-37.0); MCV 95.8 fL (80.0-100.0); MEAN PLATELET VOLUME 9.2 fL (7.4-10.4); MONOCYTES 7.1 % (2-11); NEUTROPHILS 71.3 % (40-80); PLATELET COUNT 280 10x3/uL (130-400); RDW 13.8 % (11.5-14.5); WBC 10.4 10x3/uL (4.8-10.8)
[2019-12-28 17:22] LABS: CALC OSMOLALITY 279 mosm/kg (275-300); CALCIUM 9.2 mg/dL (8.5-10.1); CARBON DIOXIDE 28.4 mmol/L (21.0-32.0); CHLORIDE - SERUM 105 mmol/L (98-107); GLUCOSE 120 mg/dL (74-106); POTASSIUM - SERUM 3.8 mmol/L (3.5-5.1); SODIUM 139 mmol/L (136-145); UREA NITROGEN 15 mg/dL (7-18); eGFR NON AFRICAN AMERICAN 82 mL/min (90-120)
[2019-12-28 17:23] LABS: CREATININE - SERUM 1.1 mg/dL (0.6-1.3)
[2019-12-28 17:28] LABS: ALKALINE PHOSPHATASE 92 U/L (30-120); ALT (SGPT) 48 U/L (10-68); AMYLASE - SERUM 75 U/L (25-115)
[2019-12-28 17:29] LABS: ALBUMIN 3.9 g/dL (3.4-5.0); LIPASE 250 U/L (73-393); PROTEIN - SERUM 7.1 g/dL (6.4-8.2)
[2019-12-28] MEDS ORDERED: ZOFRAN ODT4 MG/UDTAB PO (17:42)
== END 2019-12-28 17:52 | disposition home or self-care (01) ==
LOC: D.ER 15:58
DX: R10.13 Epigastric pain (principal); K85.90 Acute pancreatitis without necrosis or infection, unspecified; R00.2 Palpitations